=== PATIENT | male | born 1965 | race Caucasian/White ===

== ENCOUNTER 2019-10-29 00:03 | Inpatient (IN) ==
[2019-10-29] MEDS ORDERED: METOPROLOL TARTRATE 1 MG/ML VIAL IV STA (00:17)
[2019-10-29 00:35] LABS: Basophils # (auto) 0.03 K/uL (0-0.2); Basophils % (auto) 0.4 %; Eosinophils # (auto) 0.16 K/uL (0-0.5); Eosinophils % (auto) 2.2 %; Hematocrit (blood only) 44.1 % (42-52); Hemoglobin 15.8 g/dL (14.0-18.0); Immature Granulocytes # (auto) 0.02 K/uL (0.00-0.02); Immature Granulocytes % (auto) 0.3 %; Lymphocytes # (auto) 2.18 K/uL (1.2-3.4); Lymphocytes % (auto) 30.5 %; Mean Corpuscular Hemoglobin 32.7 pg (25-34); Mean Corpuscular Hgb Conc 35.8 g/dL (32-36); Mean Corpuscular Volume 91.3 fL (80-100); Monocytes # (auto) 0.49 K/uL (0.11-0.59); Monocytes % (auto) 6.9 %; Neutrophils # (auto) 4.27 K/uL (1.4-6.5); Neutrophils % (auto) 59.7 %; Platelet Count 247 K/uL (130-400); RDW Coefficient of Variation 12.3 % (11.5-14.5); RDW Standard Deviation 41.5 fL (36.4-46.3); Red Blood Count 4.83 M/uL (4.7-6.1); White Blood Count 7.15 K/uL (4.8-10.8)
[2019-10-29 00:44] LABS: D Dimer 340 ug/L FEU (0-500); INR 1.1 (0.9-1.1); Partial Thromboplastin Time 27.9 Seconds (21.0-31.0); Prothrombin Time 11.3 Seconds (9.0-12.0)
[2019-10-29] MEDS ORDERED: ASPIRIN 81 MG CHEW PO STA (00:47)
[2019-10-29] MEDS ORDERED: NITROGLYCERIN SL 0.4 MG/TAB TAB SL STA (00:47)
[2019-10-29 00:54] LABS: Alanine Aminotransferase 35 U/L (12-78); Albumin Level 3.2 gm/dl (3.4-5.0); Aspartate Aminotransferase 19 U/L (15-37); BUN Creatinine Ratio 15.9 (10-20); Blood Urea Nitrogen 18 mg/dl (7-18); Calcium 8.4 mg/dl (8.5-10.1); Carbon Dioxide 21 mmol/L (21-32); Chloride 105 mmol/L (98-107); Creatinine Clr Calc Pharmacy 91.7 ml/min; Est GFR (African American) 83.7; Est GFR (Non-African American) 72.3; Glucose 206 mg/dl (70-99); Magnesium 1.9 mg/dl (1.8-2.4); Potassium 3.7 mmol/L (3.5-5.1); Sodium 137 mmol/L (136-145)
[2019-10-29 00:55] LABS: Bilirubin Direct < 0.1 mg/dl (0-0.2)
[2019-10-29 01:04] LABS: Alkaline Phosphatase 83 U/L (45-117); Bilirubin,Total 0.4 mg/dl (0.2-1); Total Protein 6.8 gm/dl (6.4-8.2); Troponin I < 0.015 ng/ml (0-0.045)
[2019-10-29] MEDS ORDERED: ONDANSETRON INJ 2 MG/ML 2 ML VIAL IV PRN (03:43)
[2019-10-29] MEDS ORDERED: METOPROLOL TARTRATE 1 MG/ML VIAL IV PRN (03:43)
[2019-10-29] MEDS ORDERED: POLYETHYLENE (MIRALAX) 17 GM PACK PO PRN (03:43)
[2019-10-29] MEDS ORDERED: NITROGLYCERIN SL 0.4 MG/TAB TAB SL PRN (03:43)
[2019-10-29] MEDS: ACETAMINOPHEN 325 MG TAB PO PRN ×3 (04:02→15:49)
--- NOTE | 2019-10-29 04:27 | Emergency Department Note ---
Entered by Derrick Esqueda acting as a scribe for ED Provider Note Name: Andrew Ramirez Age: 54 Arrives Via: Walk in Informant: Patient CC: Palpitations HPI: The patient is a 54 year old male who presents to the emergency department with complaints of intermittent episodes of palpitations beginning a week ago. The patient states that he has had intermittent episodes of heart fluttering and palpitations for a week. He notes that these episodes of palpitations have been becoming more frequent. He reports that he became nauseous today, and he states that he has pressure in his left chest and down his left arm. He notes that it feels like someone is sticking him with a knife. He reports that he has been dyspneic with exertion for the last few months, but he states that his dyspnea has worsened over the last week. He denies any leg swelling, headaches, and leg pain. He also denies any recent trauma or recent travel. He notes that he has a family history of MIs. He reports that he does not smoke cigarettes, drink alcohol, and use drugs. The patient states that he has been seen by Dr. Reyes in the past due to a fast heart rate. It was believed that he had an irregular heart beat at that time, but he did not receive any treatment. He notes that he had two ice cream sandwiches and a cheesecake prior to arrival. ROS: See above HPI for pertinent positives & negatives. A total of 10 systems reviewed and were otherwise negative. Past Medical History: None Past Surgical History: None Family History: MIs Social History: Employed, does not use alcohol, drugs, or cigarettes Home Medications: None Allergies: None Physical: Vitals: BP 158/102, Pulse 110, Resp 22, Temp 97.7 F, O2 Sat 96 Exam: GENERAL: Patient is mildly anxious appearing and in no acute distress. EYES: No scleral icterus, unremarkable pupils. ENT: Mucous membranes moist, no nasal congestion. NECK: No masses appreciated, no meningismus, trachea is midline. RESPIRATORY: Equal bilaterally. No wheeze, no rhonchi. Mildly dyspneic. Crackles in the bilateral bases. CARDIOVASCULAR: Irregular rhythm and tachycardic. No murmurs, rubs, gallops appreciated. GASTROINTESTINAL: Abdomen soft, non-tender, no peritonitis. Bowel sounds positive. No masses appreciated. BACK: No midline tenderness, no CVA tenderness EXTREMITIES: Normal motion all extremities, no cyanosis. Mild edema to the bilateral lower legs. NEUROLOGIC: Alert and oriented, no acute motor or sensory deficits, no focal weakness, cranial nerves grossly intact. SKIN: No rash, no jaundice, no diaphoresis. ED Course: Prior Medical Record, Triage/Nursing Notes, Medications, Allergies reviewed by Me 0012: The patient was evaluated in room C4. A complete history and physical exam was performed. 0048: I reevaluated and updated the patient. He continues to have chest discomfort. 0120: Upon reevaluation, the patient is stable. His blood pressure is much improved and he has no further chest pain. I discussed the findings and the treatment plan with the patient. He expresses agreement and understanding. I spoke with Dr. Gale of the [facility]. The patient will be evaluated for further management. Vital Signs: reviewed and remarkable for tachy, htn Labs: Reviewed and remarkable for hyperglycemia Interventions: saline lock, lopressor 5mg IV, slntg tab, asa 324mg PO Imaging: CHEST X-RAY: X ray results are stated below per my interpretation: Chest: 1 view: No infiltrate, no effusion, normal cardiac border. EKG: Per My Interpretation: Indication CP: Afib RVR 116 bpm, qtc 453. Afib with RVR. No Ischemia. No previous for comparison Consults: 0120: I reviewed the patient's case with Dr. Gale - Hospitalist, [facility]. He will evaluate the patient for further management. Blood pressure: Elevated - Will be monitored by hospitalist. Disposition: Hospitalization Continuous Cardiac Monitoring: An order was placed for continuous cardiac mon itoring. The monitor shows a rate of 90 with an irregular rhythm. Differential: Cardiac Ischemia (STEMI, NSTEMI, Unstable Angina, etc), Aortic Dissection, Arrhythmia, Pulmonary Embolism, Pneumonia, Pneumothorax, MSK, Infectious, Pericarditis/Myocarditis, Esophageal Rupture, Gastrointestinal, amongst other pathologies entertained. Medical Decision Makin yr old male who reports no PMH arrives for evaluation of left chest discomfort associated with CAMPBE[place]. He does not have STEMI but does have Afib RVR from 110s-130s initially. IV established and given 1 dose lopressor with good result. Still some chest discomfort thus given SLNTG with resolution of pain. Also given ASA 324mg PO. After discussion with him it appears he may have been told Afib by steam table attendant in past but no interventions at that time. Given todays chest pain with symptoms I do think it reasonable to bring in for further management and evaluation. There is no evidence dissection/pnemonia by exam/cxr, and no evidence PE at this time. Hyperglycemia may be due to large sugar dessert he had this evening in attempt to make chest discomfort feel better. Impression: Afib with RVR Left-sided chest pain Hypertension Rinku Bhakta MD The scribe's documentation has been prepared under my direction and personally reviewed by me in its entirety. I confirm that the note above accurately reflects all work, treatment, procedures, and medical decision making performed by me. Impression & Plan Atrial fibrillation with RVR, Left-sided chest pain, Hypertension Past Med/Surg History Medical History (Updated 10/29/19 @ 01:37 by Derrick Esqueda) No chronic problems Family History (Updated 10/29/19 @ 00:21 by Derrick Esqueda) Other Myocardial infarction Social History (Updated 10/29/19 @ 00:21 by Derrick Esqueda) Preferred Language: Bahraini Communication Ability: Effective Manager Financial Required: No Beliefs That Will Affect Care: None Current Living Situation: Alone current occupational status: employed Other Information That Helps Us Care for You: No Feels Safe at Home: Yes Safety Concerns: Feels Safe At This Time Smoking Status: Never smoker Hx Alcohol Use: No Hx Substance Use: No Results & Data Vital Signs Vital Signs - 24 hr 10/29/19 00:04 10/29/19 00:32 10/29/19 01:00 Temperature 36.6 C Temperature Source Oral Pulse Rate 110 H 133 H 94 H Pulse Rhythm Regular Pulse Strength Normal Respiratory Rate 22 18 Respiratory Effort / Characteristics Non-Labored Spontaneous Respiratory Depth Normal Respiratory Pattern Regular Blood Pressure 158/102 H 134/101 H 118/78 Blood Pressure Mean 120 87 Blood Pressure Position Sitting Pulse Oximetry 96 Oxygen Delivery Method Room Air Sepsis Recent Fever Within 48 Hours No Sepsis Action Taken by Nursing No Action Required 10/29/19 01:30 10/29/19 02:00 Temperature Temperature Source Pulse Rate 84 80 Pulse Rhythm Pulse Strength Respiratory Rate 17 18 Respiratory Effort / Characteristics Respiratory Depth Respiratory Pattern Blood Pressure 114/79 138/71 Blood Pressure Mean 96 95 Blood Pressure Position Pulse Oximetry 98 Oxygen Delivery Method Sepsis Recent Fever Within 48 Hours Sepsis Action Taken by Nursing Laboratory Data Result diagrams: 10/29/19 00:24 10/29/19 00:24 Lab Results 10/29/19 10/29/19 10/29/19 Range/Units 00:24 00:24 00:24 WBC 7.15 (4.8-10.8) K/uL RBC 4.83 (4.7-6.1) M/uL Hgb 15.8 (14.0-18.0) g/dL Hct 44.1 (42-52) % MCV 91.3 (80-100) fL MCH 32.7 (25-34) pg MCHC 35.8 (32-36) g/dL RDW Std Deviation 41.5 (36.4-46.3) fL RDW Coeff of Juan Jose 12.3 (11.5-14.5) % Plt Count 247 (130-400) K/uL MPV 9.0 (7.4-10.4) fL Immature Gran % (Auto) 0.3 % Neut % (Auto) 59.7 % Lymph % (Auto) 30.5 % Terry % (Auto) 6.9 % Eos % (Auto) 2.2 % Baso % (Auto) 0.4 % Immature Gran # (Auto) 0.02 (0.00-0.02) K/uL Neut # (Auto) 4.27 (1.4-6.5) K/uL Lymph # (Auto) 2.18 (1.2-3.4) K/uL Terry # (Auto) 0.49 (0.11-0.59) K/uL Eos # (Auto) 0.16 (0-0.5) K/uL Baso # (Auto) 0.03 (0-0.2) K/uL PT 11.3 (9.0-12.0) Seconds INR 1.1 (0.9-1.1) APTT 27.9 (21.0-31.0) Seconds PTT Ratio 1.0 D-Dimer 340 (0-500) ug/L FEU Sodium 137 (136-145) mmol/L Potassium 3.7 (3.5-5.1) mmol/L Chloride 105 (98-107) mmol/L Carbon Dioxide 21 (21-32) mmol/L Anion Gap 11.0 (3-11) BUN 18 (7-18) mg/dl Creatinine 1.15 (0.6-1.4) mg/dl Est Cr Clr Drug Dosing 91.7 ml/min Est GFR ( Amer) 83.7 Est GFR (Non-Af Amer) 72.3 BUN/Creatinine Ratio 15.9 (10-20) Glucose 206 H (70-99) mg/dl Calcium 8.4 L (8.5-10.1) mg/dl Magnesium 1.9 (1.8-2.4) mg/dl Total Bilirubin 0.4 (0.2-1) mg/dl Direct Bilirubin < 0.1 (0-0.2) mg/dl AST 19 (15-37) U/L ALT 35 (12-78) U/L Alkaline Phosphatase 83 (45-117) U/L Troponin I < 0.015 (0-0.045) ng/ml Total Protein 6.8 (6.4-8.2) gm/dl Albumin 3.2 L (3.4-5.0) gm/dl TSH 4.610 H (0.300-4.500) uIu/ml Specimen Hemolysis Administered Medications Acetaminophen (Tylenol) 650 mg PO Q4H PRN PRN Reason: Pain or Fever Stop: 11/28/19 03:42 Last Admin: 10/29/19 04:02 Dose: 650 mg Documented by: [id number] Discontinued Medications Aspirin (Aspirin Chew) 324 mg PO NOW STA Stop: 10/29/19 00:48 Last Admin: 10/29/19 00:51 Dose: 324 mg Documented by: [id number] Metoprolol Tartrate (Lopressor) 5 mg IV NOW STA Stop: 10/29/19 00:18 Last Admin: 10/29/19 00:32 Dose: 5 mg Documented by: [id number] Nitroglycerin (Nitrostat) 0.4 mg SL NOW STA Stop: 10/29/19 00:48 Last Admin: 10/29/19 00:52 Dose: 0.4 mg Documented by: [id number] Discharge Plan Visit Data *Final* Discharge Date/Time: 10/29/19 03:31 Chief Complaint: Chest Pain Stated Complaint: CHEST PAIN ED Provider: Rinku Bhakta Discharge Problem: Atrial fibrillation with RVR, Left-sided chest pain, Hypertension Patient Disposition: Admitted As Inpatient Discharge Instructions Interventions: ED Discharge Assessment Last Done: 10/29/19 03:31 Discharge Problem: Hypertension Qualifiers: Hypertension type: unspecified Qualified Code(s): I10 - Essential (primary) hypertension The scribe's documentation has been prepared under my direction and personally reviewed by me in its entirety. I confirm that the note above accurately reflects all work, treatment, procedures, and medical decision making performed by me.
--- NOTE | 2019-10-29 04:38 | History and Physical Report ---
DATE OF ADMISSION: 10/29/2019 CHIEF COMPLAINT: Chest pain. HISTORY OF PRESENT ILLNESS: This is a 54-year-old male with no significant past medical history, not on any medications, presents with 1 week of left-sided chest pain, sharp stabbing like pain. It comes and goes on its own. No associating factors, but today it stayed all day long, that is the reason he came to the ER. Last couple of days he woke up with palpitations and some nausea, but no vomiting. Denies any headache, no dizziness, no earache, no runny nose, no blurred vision, no sore throat, no cough and patient at one time also had pressure-like feeling on his left arm. Currently, resting comfortably and hemodynamically stable. Denies any abdominal pain, no diarrhea, no constipation, no blood in stool or black stools, no hematuria. Denies any swelling in the legs. Denies any orthopnea,. But since several months he is having some shortness of breath on exertion and feeling weak and tired with exertion. ALLERGIES: No known drug allergies. PAST MEDICAL HISTORY: None. PAST SURGICAL HISTORY: He had left shoulder surgery, right knee replacement, tendon cyst removal on the right upper extremity. MEDICATIONS: None. FAMILY HISTORY: Heart disease in the family. SOCIAL HISTORY: Denies any smoking, no alcohol. No drug use. Lives alone. REVIEW OF SYMPTOMS: As per HPI. Rest of review of systems negative. PHYSICAL EXAMINATION: GENERAL: The patient is morbidly obese, not in acute distress. VITAL SIGNS: Temperature 36.6, pulse when he came in was 130s, currently in the 80s, respiratory rate 18, blood pressure 138/71, oxygen 98% on room air. HEENT: No pallor, no icterus. Pupils equal, round, reactive to light. NECK: No JVD, no neck masses, no carotid bruits. CARDIOVASCULAR: S1, S2 heard, irregular rhythm, no murmur, no gallop. RESPIRATORY SYSTEM: Normal AP diameter. No accessory muscle use. No wheezing, no crackles. ABDOMEN: Soft, bowel sounds present, nontender. No distention. CENTRAL NERVOUS SYSTEM: Cranial nerves II-XII grossly nonfocal. EXTREMITIES: Mild pedal edema present, no erythema seen. LABORATORY DATA: WBC 7.1, hemoglobin 15.8, hematocrit 44.1, platelets 247. PT 11.3, INR 1.1, APTT 27.9. D-dimer 340. PTT 1. Sodium 137, potassium 3.7, chloride 105, bicarbonate 21, BUN 18, creatinine 1.15. Serum glucose 206, calcium 8.4, magnesium 1.9, total bilirubin 0.4, direct bilirubin less than 0.1, AST 19, ALT 35, alkaline phosphatase 83, troponin I less than 0.015. TSH 4.6. IMAGING: Chest x-ray, no acute findings. EKG: Atrial fibrillation with rapid ventricular response at rate of 116. ASSESSMENT AND PLAN: This is a 54-year-old male who presents with chest pain and found to be in rapid atrial fibrillation. 1. Rapid atrial fibrillation, new onset, etiology unclear. CHADS2-VASc score was 1. The patient given IV Lopressor in the ER and it is under control. We will continue with IV Lopressor 2.5 q.4 hours p.r.n. and full - dose aspirin. Echocardiogram, serial cardiac enzymes, n.p.o. Consult cardiology in a.m. for further recommendations. Further anticoagulation as per cardiology. 2. Obesity, may need a sleep study as outpatient. 3. Chest pain, left side, most likely secondary to rapid atrial fibrillation. Initial Troponin is negative . Will follow serial enzymes, echocardiogram. Follow repeat EKG. 4. Hyperglycemia. The patient states he has no history of diabetes,.Patient says he ate lot of junk food before coming to the hospital. We will check his HbA1c level in a.m. and follow his blood sugars. 5. Mild lower extremity edema. Follow the echocardiogram. 6. Deep venous thrombosis prophylaxis, sequential compression devices. DISPOSITION: Closely monitor in the tele floor. Level 1 full code. MTDD
--- NOTE | 2019-10-29 06:29 | XRay Report ---
XR chest 1V portable CLINICAL HISTORY: Atypical chest pain COMPARISON STUDY: No previous studies for comparison. FINDINGS: The heart is enlarged. There is mild central vascular prominence which may be accentuated d ue to the patient's large body habitus. There is no focal pulmonary consolidation. There are no pleur al effusions.[ IMPRESSION: Cardiomegaly. No evidence of focal pulmonary consolidation. Mild vascular prominence, a f inding which may be accentuated due to the patient's body habitus ACT 112: Negative or not required by law. Electronically signed by: Bo Horvath M.D. 10/29/2019 6:28 AM
[2019-10-29 07:49] LABS: Estimated Average Glucose 126 mg/dl
[2019-10-29 08:07] LABS: Troponin I < 0.015 ng/ml (0-0.045)
[2019-10-29 08:20] LABS: T4 Free Thyroxine 0.94 ng/dl (0.8-1.6)
--- NOTE | 2019-10-29 08:52 | Cardiology Consultation ---
Date of Consultation October 29, 2019 Assessment & Plan (1) Atrial fibrillation with RVR: Newly diagnosed. Duration unknown. Potentially 1-6 months based on his symptoms of dyspnea, decline in functional capacity and palpitations. [id number] score of 2 (Hypertension and now likely DM given elevated A1C) His BMI and weight are over the recommended limit for DOAC. Recommend initiation of Coumadin. After 4 weeks of appropriate anticoagulation, consider cardioversion. Start metoprolol tartrate 25 mg BID for rate control. Echo with normal LV systolic function. will request records from Dr. Reyes Consider outpatient stress test as well given risk factors PT/INR ordered for AM. will need close f/u with anticoagulation clinic in [place]. (2) Hypertension: Elevated BP on arrival. Improved with intiation of beta gunnar. Monitor on metoprolol 25 mg BID Consider NARENDRA/ARB given borderline diabetic (3) Dyslipidemia: History of dyslipidemia. previously on Tricor but stopped. Will recheck fasting lipid panel in AM and consider statin Case discussed with Dr. Victor. Will follow. Supervising Physician Co-Signing Physician Notes General: no acute distress and stated age Head: normocephalic, no masses, lesions, tenderness or abnormalities Eyes: conjunctiva are pink and non-injected, sclera clear Neck: supple, no adenopathy, no bruits, normal jugular venous pulse, no hepatojugular reflux Chest: normal shape and normal respiratory effort Lungs: clear to auscultation and percussion Cardiac Exam: - irregular rate & rhythm, no murmurs gallops or rubs - normal S1, normal S2 Pulses: 2(+) throughout Abdomen: abdomen soft, non-tender, no abnormal masses and no hepatosplenomegaly Musculoskeletal: no gait disturbance, no joint inflammation, no deforming arthritis Extremities: no edema and no cyanosis Neuro: grossly normal exam I have discussed the case with Alicia Moise, reviewed the chart and examined the patient. I agree with her assessment and plan as outlined. History of Present Illness Reason for Consultation: Chest pain; Atrial fibrillation Requesting Physician: Dr. Gale Attending Physician: Dr. Victor History of Present Illness Patient is a 54 year old male with history of obesity, dyslipidemia who does not follow routinely with a PCP, and is currently not taking any prescription medications. He reports that he was evaluated several years ago by Dr. Reyes, [facility] in [place] for possible an irregular heart beat at time of a colonoscopy. He does not believe this was "atrial fibrillation". Records not available to review at this time. He reports he took a medication for several months but stopped it and never returned to clinic. He is unsure the name of this medication. He reportedly also had a stress test about 2 years ago which he was told was normal. No history of NE, CHF, valvular heart disease. He reports over the last week he developed intermittent sharp stabbing chest pain, occurring intermittently. Not related to exertion. Lasts several seconds and resolves spontaneously. He also reports palpitations in the morning hours that resolve. He notes increased fatigue and decline in functional capacity possibly dating back 6 months. No exertional chest pain. Increased dyspnea with exertion reported x 6 months. Intermittent palpitations also noted during this time. He has not seen a medical provider during this time for these symptoms. He does not check HR or BP at home. Upon arrival to ER he was found to be in afib with mildly elevated ventricular rates. He was started on low dose metoprolol IV. He was not anticoagulated due to low CHADSSVASC score. BP was elevated on arrival without history of documented hypertension. Glucose was also elevated on arrival without history of documented DM type II. Rates improved overnight. At time of consult, patient reports feeling well. No recurrent chest pain. HR's trending down. No recurrent palpitations or tachypalpitations. No orthopnea, PND or edema. No recent chest pain with activity. No dizziness, syncope or near syncope. He reports no history of acute GI bleeding. he had a colonoscopy and EGD 2 years ago and was told he had diverticulitis but no bleed. 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 Beliefs That Will Affect Care: None Current Living Situation: Alone current occupational status: employed Other Information That Helps Us Care for You: No Feels Safe at Home: Yes Safety Concerns: Feels Safe At This Time Smoking Status: Never smoker Hx Alcohol Use: No Hx Substance Use: No Review of Systems Review of Systems: All systems reviewed & are unremarkable except as noted in HPI & below Physical Exam Constitutional: WD/WN, vitals as above + obese; no acute distress and not ill appearing ENMT: external ear and nose normal, oropharynx normal Neck: trachea midline, no thyromegaly Respiratory: normal respiratory effort, lungs clear to auscultation Cardiovascular: Rate/Rhythm: + irregularly irregular Heart Sounds: normal S1 and normal S2; no murmur Vessels: no JVD Extremities: no edema Gastrointestinal (Abdomen): normal bowel sounds, soft, nontender, no hepatosplenomegaly Musculoskeletal: no cyanosis or clubbing, extremities motor strength 5/5 Neurologic: PERRL, EOMI, accommodation nl, no face palsy, no dysarthria Psychiatric: A+Ox3, euthymic affect Results & Data ([facility]) Vital Signs (Past 12 Hours) Vital Signs Temp Pulse Pulse Resp BP BP Pulse Ox 10/29/19 07:22 100 H 10/29/19 06:30 36.9 C 95 H 21 119/76 96 10/29/19 03:38 36.9 C 84 20 132/89 96 10/29/19 03:00 100 H 22 132/101 H 10/29/19 02:30 90 16 141/77 H 10/29/19 02:00 80 18 138/71 98 10/29/19 01:30 84 17 114/79 10/29/19 01:00 94 H 18 118/78 10/29/19 00:32 133 H 134/101 H 10/29/19 00:04 36.6 C 110 H 22 158/102 H 96 Laboratory Results 10/29/19 10/29/19 10/29/19 Range/Units 06:56 06:56 00:24 WBC (4.8-10.8) K/uL RBC (4.7-6.1) M/uL Hgb (14.0-18.0) g/dL Hct (42-52) % MCV (80-100) fL MCH (25-34) pg MCHC (32-36) g/dL RDW Std Deviation (36.4-46.3) fL RDW Coeff of Juan Jose (11.5-14.5) % Plt Count (130-400) K/uL MPV (7.4-10.4) fL Immature Gran % (Auto) % Neut % (Auto) % Lymph % (Auto) % [place] % (Auto) % Eos % (Auto) % Baso % (Auto) % Immature Gran # (Auto) (0.00-0.02) K/uL Neut # (Auto) (1.4-6.5) K/uL Lymph # (Auto) (1.2-3.4) K/uL [place] # (Auto) (0.11-0.59) K/uL Eos # (Auto) (0-0.5) K/uL Baso # (Auto) (0-0.2) K/uL PT (9.0-12.0) Seconds INR (0.9-1.1) APTT (21.0-31.0) Seconds PTT Ratio D-Dimer (0-500) ug/L FEU Sodium 137 (136-145) mmol/L Potassium 3.7 (3.5-5.1) mmol/L Chloride 105 (98-107) mmol/L Carbon Dioxide 21 (21-32) mmol/L Anion Gap 11.0 (3-11) BUN 18 (7-18) mg/dl Creatinine 1.15 (0.6-1.4) mg/dl Est Cr Clr Drug Dosing 91.7 ml/min Est GFR ( Amer) 83.7 Est GFR (Non-Af Amer) 72.3 BUN/Creatinine Ratio 15.9 (10-20) Glucose 206 H (70-99) mg/dl Estimat Average Glucose 126 mg/dl Hemoglobin A1c 6.0 H (4.5-5.6) % Calcium 8.4 L (8.5-10.1) mg/dl Magnesium 1.9 (1.8-2.4) mg/dl Total Bilirubin 0.4 (0.2-1) mg/dl Direct Bilirubin < 0.1 (0-0.2) mg/dl AST 19 (15-37) U/L ALT 35 (12-78) U/L Alkaline Phosphatase 83 (45-117) U/L Troponin I < 0.015 < 0.015 (0-0.045) ng/ml Total Protein 6.8 (6.4-8.2) gm/dl Albumin 3.2 L (3.4-5.0) gm/dl TSH 4.870 H 4.610 H (0.300-4.500) uIu/ml Free T4 0.94 (0.8-1.6) ng/dl Specimen Hemolysis 10/29/19 10/29/19 Range/Units 00:24 00:24 WBC 7.15 (4.8-10.8) K/uL RBC 4.83 (4.7-6.1) M/uL Hgb 15.8 (14.0-18.0) g/dL Hct 44.1 (42-52) % MCV 91.3 (80-100) fL MCH 32.7 (25-34) pg MCHC 35.8 (32-36) g/dL RDW Std Deviation 41.5 (36.4-46.3) fL RDW Coeff of Juan Jose 12.3 (11.5-14.5) % Plt Count 247 (130-400) K/uL MPV 9.0 (7.4-10.4) fL Immature Gran % (Auto) 0.3 % Neut % (Auto) 59.7 % Lymph % (Auto) 30.5 % [place] % (Auto) 6.9 % Eos % (Auto) 2.2 % Baso % (Auto) 0.4 % Immature Gran # (Auto) 0.02 (0.00-0.02) K/uL Neut # (Auto) 4.27 (1.4-6.5) K/uL Lymph # (Auto) 2.18 (1.2-3.4) K/uL [place] # (Auto) 0.49 (0.11-0.59) K/uL Eos # (Auto) 0.16 (0-0.5) K/uL Baso # (Auto) 0.03 (0-0.2) K/uL PT 11.3 (9.0-12.0) Seconds INR 1.1 (0.9-1.1) APTT 27.9 (21.0-31.0) Seconds PTT Ratio 1.0 D-Dimer 340 (0-500) ug/L FEU Sodium (136-145) mmol/L Potassium (3.5-5.1) mmol/L Chloride (98-107) mmol/L Carbon Dioxide (21-32) mmol/L Anion Gap (3-11) BUN (7-18) mg/dl Creatinine (0.6-1.4) mg/dl Est Cr Clr Drug Dosing ml/min Est GFR ( Amer) Est GFR (Non-Af Amer) BUN/Creatinine Ratio (10-20) Glucose (70-99) mg/dl Estimat Average Glucose mg/dl Hemoglobin A1c (4.5-5.6) % Calcium (8.5-10.1) mg/dl Magnesium (1.8-2.4) mg/dl Total Bilirubin (0.2-1) mg/dl Direct Bilirubin (0-0.2) mg/dl AST (15-37) U/L ALT (12-78) U/L Alkaline Phosphatase (45-117) U/L Troponin I (0-0.045) ng/ml Total Protein (6.4-8.2) gm/dl Albumin (3.4-5.0) gm/dl TSH (0.300-4.500) uIu/ml Free T4 (0.8-1.6) ng/dl Specimen Hemolysis Diagnostic Findings Echo report reviewed: Normal LV systolic function. LVEF 50-55% RV systolic function is normal Left and right atrium is mildly dilated Mild MR and trace TR Chest xray on admission: No acute findings Telemetry reviewed: Afib with rates ranging 90-100's Medications Administered Current Inpatient Medications Acetaminophen (Tylenol) 650 mg PO Q4H PRN PRN Reason: Pain or Fever Stop: 11/28/19 03:42 Last Admin: 10/29/19 07:51 Dose: 650 mg Documented by: Metoprolol Tartrate (Lopressor) 2.5 mg IV Q4 PRN PRN Reason: Tachycardia Stop: 11/28/19 03:42 Metoprolol Tartrate (Lopressor) 25 mg PO BID DEMETRI Stop: 11/28/19 09:59 Last Admin: 10/29/19 11:35 Dose: 25 mg Documented by: Nitroglycerin (Nitrostat) 0.4 mg SL UD PRN PRN Reason: Chest Pain Stop: 04/09/20 03:42 Ondansetron HCl (Zofran) 4 mg IV Q6H PRN PRN Reason: Nausea Stop: 11/28/19 03:42 Polyethylene Glycol (Miralax Powder Packet) 17 gm PO DAILY PRN PRN Reason: Constipation Stop: 11/28/19 03:42 (1) Hypertension Hypertension type: unspecified Qualified Code(s): I10 - Essential (primary) hypertension
[2019-10-29] MEDS ORDERED: ASPIRIN 325 MG ECTAB PO SCH (09:00)
[2019-10-29] MEDS ORDERED: WARFARIN SOD 5 MG TAB PO ONE (10:30)
[2019-10-29] MEDS: METOPROLOL TARTRATE 25 MG TAB PO SCH ×2 (11:35→20:52)
--- NOTE | 2019-10-29 14:55 | Electrocardiogram Report ---
Test Reason : Blood Pressure : / mmHG Vent. Rate : 116 BPM Atrial Rate : 107 BPM P-R Int : 000 ms QRS Dur : 078 ms QT Int : 326 ms P-R-T Axes : 000 060 -09 degrees QTc Int : 453 ms Atrial fibrillation with rapid ventricular response Abnormal QRS-T angle, consider primary T wave abnormality Abnormal ECG No previous ECGs available Confirmed by Albino Wu ([id number]) on 10/29/2019 2:55:44 PM Referred By: REFERRED SELF Confirmed By:Albino Wu
--- NOTE | 2019-10-29 17:10 | Hospitalist Progress Note ---
Date of Service October 29, 2019 Assessment & Plan (1) Atrial fibrillation with RVR: Patient admitted with chest pain shortness of breath, dizzy spell and lightheadedness - report of increased fatigue dyspnea on exertion for last few months Found to be in rapid A. fib RVR Diagnosis, Given symptoms of CAMPBELL, palpitation for last few months, have been in atrial fibrillation more than 6 weeks Calculated [id number] 2 (hypertension/type 2 diabetes) Started on p.o. Coumadin for stroke prophylaxis, does not need a bridge therapy Patient started on beta-gunnar Lopressor 25 mg twice daily Remains in A. fib with rate controlled Appreciate input from cardiology Patient may need cardioversion after 4 weeks of anticoagulation Echo with normal LV systolic function. Wants to establish with cardiology with Avi Navarro Will need outpatient cardiac stress test for ischemic work-up Fasting lipid panel in a.m. (2) Hypertension: Pressure was elevated on admission Improved after beta-gunnar Low-dose NARENDRA inhibitor lisinopril 2.5 mg given diabetes Type 2 diabetes: Patient has very significant family history of type 2 diabetes with complication, coronary artery disease Hemoglobin A1c 6.5 Not on any antidiabetic meds clinical informatics educator consulted Insulin sliding scale while in hospital Patient may need to be on oral antidiabetic medication on discharge To follow-up with family physician for diabetic management Patient wants to establish care with Avi lucas at [facility]- for continuation of care Code status: Full code DVT prophylaxis: On Coumadin Disposition: Expected to be discharged home when medically stable Patient will need to establish care with family physician and cardiology prior to discharge Admission and Anticipated Discharge Date Admission Date: October 29, 2019 Subjective Patient reports of feeling better since admission Patient denies of any chest heaviness chest discomfort no shortness of breath at rest, Did experienced mild dyspnea on exertion while walking to the bathroom No dizzy spell lightheadedness Report of palpitation No cough, Review of Systems Review of Systems: All systems reviewed & are unremarkable except as noted in HPI & below Cardiovascular: + dyspnea on exertion; no chest pain, no dyspnea, no dyspnea at rest, no palpitations, no lightheadedness, no syncope and no edema Gastrointestinal: no abdominal pain, no nausea and no vomiting Neurologic: no dizziness and no syncope Physical Exam Constitutional: WD/WN, vitals as above no acute distress Eyes: PERRL, conjunctivae normal, anicteric sclerae ENMT: external ear and nose normal, oropharynx normal Neck: trachea midline, no thyromegaly Respiratory: normal respiratory effort, lungs clear to auscultation Auscultation: no crackles and no rales Cardiovascular: Rate/Rhythm: regular rate; + abnormal rhythm (Irregularly irregular/A. fib) Vessels: no JVD Extremities: normal capillary refill; no pedal edema and no edema Gastrointestinal (Abdomen): normal bowel sounds, soft, nontender, no hepato splenomegaly Musculoskeletal: no cyanosis or clubbing, extremities motor strength 5/5 Skin: no rashes, warm and dry Neurologic: PERRL, EOMI, accommodation nl, no face palsy, no dysarthria Psychiatric: A+Ox3, euthymic affect Results & Data ([facility]) Vital Signs (Past 12 Hours) Vital Signs Temp Pulse Pulse Pulse Resp BP Pulse Ox 10/29/19 15:16 36.9 C 75 18 125/78 95 10/29/19 11:09 37.1 C 91 H 18 130/75 95 10/29/19 07:22 100 H 10/29/19 06:30 36.9 C 95 H 21 119/76 96 Diagnostic Findings Echo 10/29/2019 Normal LV systolic function. LVEF 50-55% RV systolic function is normal Left and right atrium is mildly dilated Mild MR and trace TR Chest xray on admission: No acute findings Telemetry reviewed: Afib with rates ranging 90-100's Medications Administered Current Inpatient Medications Acetaminophen (Tylenol) 650 mg PO Q4H PRN PRN Reason: Pain or Fever Stop: 11/28/19 03:42 Last Admin: 10/29/19 15:49 Dose: 650 mg Documented by: Metoprolol Tartrate (Lopressor) 2.5 mg IV Q4 PRN PRN Reason: Tachycardia Stop: 11/28/19 03:42 Metoprolol Tartrate (Lopressor) 25 mg PO BID DEMETRI Stop: 11/28/19 09:59 Last Admin: 10/29/19 11:35 Dose: 25 mg Documented by: Nitroglycerin (Nitrostat) 0.4 mg SL UD PRN PRN Reason: Chest Pain Stop: 11/28/19 03:42 Ondansetron HCl (Zofran) 4 mg IV Q6H PRN PRN Reason: Nausea Stop: 11/28/19 03:42 Polyethylene Glycol (Miralax Powder Packet) 17 gm PO DAILY PRN PRN Reason: Constipation Stop: 11/28/19 03:42 Warfarin Sodium (Coumadin) 5 mg PO DAILY@1600 DEMETRI Stop: 11/29/19 15:59 (1) Hypertension Hypertension type: unspecified Qualified Code(s): I10 - Essential (primary) hypertension
[2019-10-29] MEDS ORDERED: GLUCOSE 40% GEL 15 GM TUBE PO PRN (18:58)
[2019-10-29] MEDS ORDERED: DEXTROSE 50% 50 ML SYRINGE IV PRN (18:58)
[2019-10-29] MEDS ORDERED: GLUCAGON FOR INJ 1 MG VIAL SQ PRN (18:58)
[2019-10-29] MEDS ORDERED: GLUCOSE 10 TABS/TUBE PO PRN (18:58)
[2019-10-29] MEDS ORDERED: CARBOHYDRATES FOR HYPOGLYCEMIA PO PRN (18:58)
[2019-10-29] MEDS: INSULIN ASPART 100 UNITS/ML 3 ML PEN SC SCH (22:04)
[2019-10-30 06:03] LABS: Basophils # (auto) 0.05 K/uL (0-0.2); Basophils % (auto) 0.8 %; Eosinophils # (auto) 0.22 K/uL (0-0.5); Eosinophils % (auto) 3.5 %; Hematocrit (blood only) 45.9 % (42-52); Hemoglobin 16.2 g/dL (14.0-18.0); Immature Granulocytes # (auto) 0.03 K/uL (0.00-0.02); Immature Granulocytes % (auto) 0.5 %; Lymphocytes # (auto) 1.96 K/uL (1.2-3.4); Lymphocytes % (auto) 30.9 %; Mean Corpuscular Hemoglobin 32.3 pg (25-34); Mean Corpuscular Hgb Conc 35.3 g/dL (32-36); Mean Corpuscular Volume 91.6 fL (80-100); Mean Platelet Volume 9.1 fL (7.4-10.4); Monocytes # (auto) 0.57 K/uL (0.11-0.59); Neutrophils # (auto) 3.52 K/uL (1.4-6.5); Neutrophils % (auto) 55.3 %; Platelet Count 231 K/uL (130-400); RDW Coefficient of Variation 12.5 % (11.5-14.5); RDW Standard Deviation 41.9 fL (36.4-46.3); Red Blood Count 5.01 M/uL (4.7-6.1); White Blood Count 6.35 K/uL (4.8-10.8)
[2019-10-30 06:12] LABS: INR 1.1 (0.9-1.1); Prothrombin Time 11.9 Seconds (9.0-12.0)
[2019-10-30 06:35] LABS: BUN Creatinine Ratio 15.9 (10-20); Calcium 8.9 mg/dl (8.5-10.1); Est GFR (African American) 101.6; Est GFR (Non-African American) 87.7; Magnesium 2.1 mg/dl (1.8-2.4)
[2019-10-30] MEDS: INSULIN ASPART 100 UNITS/ML 3 ML PEN SC SCH ×3 (08:34→17:05)
[2019-10-30] MEDS: METOPROLOL TARTRATE 25 MG TAB PO SCH (08:34)
--- NOTE | 2019-10-30 09:23 | Cardiology Progress Note ---
Date of Service October 30, 2019 Assessment & Plan (1) Atrial fibrillation with RVR: Newly diagnosed. Duration unknown. Potentially 1-6 months based on his symptoms of dyspnea, decline in functional capacity and palpitations. [id number] score of 2 (Hypertension and now likely DM given elevated A1C) After discussion with Dr. Victor, will initate Eliquis and discharge on 5 mg BID. Stop coumadin After 4 weeks of appropriate anticoagulation, will arrange cardioversion. Ventricular rates controlled on metoprolol 25 mg BID. Consider outpatient stress test in the future as well given risk factors (2) Hypertension: Elevated BP on arrival. Improved with intiation of beta gunnar. Monitor on metoprolol 25 mg BID Consider future NARENDRA/ARB given borderline diabetic (3) Dyslipidemia: History of dyslipidemia with elevated triglycerides. previously on Tricor but stopped. Recommend resuming therapy Case discussed with Dr. Victor. Stable for discharge on Eliquis 5 mg BID and metoprolol tartrate 25 mg BID. Will arrange cardiology follow up in 2-[address] Victor or Jose Maria. Office will call with appointment. Supervising Physician Co-Signing Physician Notes I have discussed the case with Alicia Moise. I reviewed the chart, telemetry and examined the patient. I agree that he can be discharged home with follow-up as an outpatient and eventual elective cardioversion as an outpatient. Subjective Patient feeling well this morning. No recurrent chest pain or SOB. No dizziness. No palpitations. No orthopnea, PND or edema. Review of Systems Review of Systems: All systems reviewed & are unremarkable except as noted in HPI & below Physical Exam Constitutional: WD/WN, vitals as above + obese; no acute distress and not ill appearing ENMT: external ear and nose normal, oropharynx normal Neck: trachea midline, no thyromegaly Respiratory: normal respiratory effort, lungs clear to auscultation Cardiovascular: Rate/Rhythm: + irregularly irregular Heart Sounds: normal S1 and normal S2; no murmur Vessels: no JVD Extremities: no edema Gastrointestinal (Abdomen): normal bowel sounds, soft, nontender, no hepatosplenomegaly Musculoskeletal: no cyanosis or clubbing, extremities motor strength 5/5 Neurologic: PERRL, EOMI, accommodation nl, no face palsy, no dysarthria Psychiatric: A+Ox3, euthymic affect Results & Data Vital Signs (Past 12 Hours) Vital Signs Temp Pulse Pulse Resp BP Pulse Ox 10/30/19 08:00 82 10/30/19 07:30 36.5 C 75 18 105/73 95 10/30/19 04:33 36.5 C 92 H 18 146/102 H 95 10/29/19 23:14 36.8 C 83 16 144/98 H 96 Laboratory Results 10/30/19 10/30/19 10/30/19 Range/Units 07:29 05:42 05:42 WBC 6.35 (4.8-10.8) K/uL RBC 5.01 (4.7-6.1) M/uL Hgb 16.2 (14.0-18.0) g/dL Hct 45.9 (42-52) % MCV 91.6 (80-100) fL MCH 32.3 (25-34) pg MCHC 35.3 (32-36) g/dL RDW Std Deviation 41.9 (36.4-46.3) fL RDW Coeff of Juan Jose 12.5 (11.5-14.5) % Plt Count 231 (130-400) K/uL MPV 9.1 (7.4-10.4) fL Immature Gran % (Auto) 0.5 % Neut % (Auto) 55.3 % Lymph % (Auto) 30.9 % [place] % (Auto) 9.0 % Eos % (Auto) 3.5 % Baso % (Auto) 0.8 % Immature Gran # (Auto) 0.03 H (0.00-0.02) K/uL Neut # (Auto) 3.52 (1.4-6.5) K/uL Lymph # (Auto) 1.96 (1.2-3.4) K/uL [place] # (Auto) 0.57 (0.11-0.59) K/uL Eos # (Auto) 0.22 (0-0.5) K/uL Baso # (Auto) 0.05 (0-0.2) K/uL PT 11.9 (9.0-12.0) Seconds INR 1.1 (0.9-1.1) Sodium (136-145) mmol/L Potassium (3.5-5.1) mmol/L Chloride (98-107) mmol/L Carbon Dioxide (21-32) mmol/L Anion Gap (3-11) BUN (7-18) mg/dl Creatinine (0.6-1.4) mg/dl Est Cr Clr Drug Dosing ml/min Est GFR ( Amer) Est GFR (Non-Af Amer) BUN/Creatinine Ratio (10-20) Glucose (70-99) mg/dl POC Glucose 116 H (70-99) mg/dl Calcium (8.5-10.1) mg/dl Magnesium (1.8-2.4) mg/dl Troponin I (0-0.045) ng/ml Triglycerides (0-150) mg/dl Cholesterol (0-200) mg/dl LDL Cholesterol Direct mg/dl LDL Cholesterol, Calc mg/dl VLDL Cholesterol, Calc mg/dl HDL Cholesterol mg/dl Cholesterol/HDL Ratio 10/30/19 10/29/19 10/29/19 Range/Units 05:42 20:50 12:54 WBC (4.8-10.8) K/uL RBC (4.7-6.1) M/uL Hgb (14.0-18.0) g/dL Hct (42-52) % MCV (80-100) fL MCH (25-34) pg MCHC (32-36) g/dL RDW Std Deviation (36.4-46.3) fL RDW Coeff of Juan Jose (11.5-14.5) % Plt Count (130-400) K/uL MPV (7.4-10.4) fL Immature Gran % (Auto) % Neut % (Auto) % Lymph % (Auto) % [place] % (Auto) % Eos % (Auto) % Baso % (Auto) % Immature Gran # (Auto) (0.00-0.02) K/uL Neut # (Auto) (1.4-6.5) K/uL Lymph # (Auto) (1.2-3.4) K/uL [place] # (Auto) (0.11-0.59) K/uL Eos # (Auto) (0-0.5) K/uL Baso # (Auto) (0-0.2) K/uL PT (9.0-12.0) Seconds INR (0.9-1.1) Sodium 137 (136-145) mmol/L Potassium 4.0 (3.5-5.1) mmol/L Chloride 107 (98-107) mmol/L Carbon Dioxide 22 (21-32) mmol/L Anion Gap 8.0 (3-11) BUN 16 (7-18) mg/dl Creatinine 0.98 (0.6-1.4) mg/dl Est Cr Clr Drug Dosing 111.0 ml/min Est GFR ( Amer) 101.6 Est GFR (Non-Af Amer) 87.7 BUN/Creatinine Ratio 15.9 (10-20) Glucose 123 H (70-99) mg/dl POC Glucose 98 (70-99) mg/dl Calcium 8.9 (8.5-10.1) mg/dl Magnesium 2.1 (1.8-2.4) mg/dl Troponin I < 0.015 (0-0.045) ng/ml Triglycerides 561 H (0-150) mg/dl Cholesterol 218 H (0-200) mg/dl LDL Cholesterol Direct 108 mg/dl LDL Cholesterol, Calc mg/dl VLDL Cholesterol, Calc mg/dl HDL Cholesterol 33 mg/dl Cholesterol/HDL Ratio 7 Diagnostic Findings Echo reviewed: Normal LV systolic function LVEF 50-55% Mildly dilated left and right atria mild MR and trace TR EKG from this morning: Afib with controlled rates. no acute changes Telemetry reviewed: Afib with controlled rates ranging 70-90 bpm Medications Administered Current Inpatient Medications Acetaminophen (Tylenol) 650 mg PO Q4H PRN PRN Reason: Pain or Fever Stop: 11/28/19 03:42 Last Admin: 10/29/19 15:49 Dose: 650 mg Documented by: Apixaban (Eliquis) 5 mg PO BID [facility] Stop: 11/29/19 09:29 Dextrose (Dextrose 50%) 25 - 50 ml IV UD PRN; Protocol PRN Reason: Hypoglycemia Protocol Stop: 11/28/19 18:57 Glucagon (Glucagen) 1 mg SQ UD PRN; Protocol PRN Reason: Hypoglycemia Protocol Stop: 11/28/19 18:57 Glucose (Dex4 Glucose) 4 - 8 tabs PO UD PRN; Protocol PRN Reason: Hypoglycemia Protocol Stop: 11/28/19 18:57 Glucose (Glucose 40%) 15 - 30 gm PO UD PRN; Protocol PRN Reason: Hypoglycemia Protocol Stop: 11/28/19 18:57 Insulin Aspart (Novolog Flexpen) 0 units SC ACHS [facility] Stop: 11/28/19 20:59 Last Admin: 10/30/19 08:34 Dose: 5 units Documented by: Metoprolol Tartrate (Lopressor) 2.5 mg IV Q4 PRN PRN Reason: Tachycardia Stop: 11/28/19 03:42 Metoprolol Tartrate (Lopressor) 25 mg PO BID [facility] Stop: 11/28/19 09:59 Last Admin: 10/30/19 08:34 Dose: 25 mg Documented by: Miscellaneous (Carbohydrates For Hypoglycemia) 15 - 30 gm PO UD PRN PRN Reason: Hypoglycemia Protocol Stop: 11/28/19 18:57 Nitroglycerin (Nitrostat) 0.4 mg SL UD PRN PRN Reason: Chest Pain Stop: 11/28/19 03:42 Ondansetron HCl (Zofran) 4 mg IV Q6H PRN PRN Reason: Nausea Stop: 11/28/19 03:42 Polyethylene Glycol (Miralax Powder Packet) 17 gm PO DAILY PRN PRN Reason: Constipation Stop: 11/28/19 03:42 (1) Hypertension Hypertension type: unspecified Qualified Code(s): I10 - Essential (primary) hypertension
[2019-10-30] MEDS ORDERED: APIXABAN 5 MG TABLET PO SCH (09:30)
--- NOTE | 2019-10-30 15:45 | Hospitalist Progress Note ---
Date of Service October 30, 2019 Assessment & Plan (1) Atrial fibrillation with RVR: Patient admitted with chest pain shortness of breath, dizzy spell and lightheadedness Found to be in rapid A. fib RVR on admission Received IV lopressor in the ER Starting on Lopressor 25 mg BID, Rate control Calculated [id number] (hypertension/type 2 diabetes) cardiology on board Coumadin was changed to Eliquis Remains in A. fib with rate controlled Plan for Cardioversion after 4 weeks of appropriate anticoagulation Consider outpatient stress test in the future as well given risk factors Echo with normal LV systolic function. 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 Insulin sliding scale while in hospital Continue lifestyle modification Follow-up with family physician for diabetic management Dyslipidemia Triglyceride above 500's Advised pt to resume the tricor (Script sent to the pharmacy) Code status: Full code DVT prophylaxis: Eliquis Disposition: Discharge home today Admission and Anticipated Discharge Date Admission Date: October 29, 2019 Subjective Pt was seen and examined Sitting in chair with no distress Pt said that he feels fine Denies any chest pain, palpitation, dizziness and SOB Physical Exam Physical Exam: General- No acute distress Head- atraumatic Eyes- PERRL, EOMI, ENT- oropharynx clear Neck- supple, no JVD Lungs- clear to auscultation Heart- irregular rhythm; no murmur Abdomen- normal bowel sounds, soft, nontender Extremities- no calf tenderness Neuro- alert, oriented, PERRL, EOMI; no facial palsy; no dysarthria Skin- warm & dry Results & Data ([facility]) Vital Signs (Past 12 Hours) Vital Signs Temp Pulse Pulse Resp BP Pulse Ox 10/30/19 15:35 36.7 C 100 H 16 132/92 94 10/30/19 11:21 36.6 C 71 18 130/83 93 10/30/19 08:00 82 10/30/19 07:30 36.5 C 75 18 105/73 95 10/30/19 04:33 36.5 C 92 H 18 146/102 H 95 (1) Hypertension Hypertension type: unspecified Qualified Code(s): I10 - Essential (primary) hypertension
[2019-10-30] MEDS ORDERED: WARFARIN SOD 5 MG TAB PO SCH (16:00)
--- NOTE | 2019-10-30 16:32 | Electrocardiogram Report ---
Test Reason : Blood Pressure : / mmHG Vent. Rate : 081 BPM Atrial Rate : 000 BPM P-R Int : 000 ms QRS Dur : 078 ms QT Int : 380 ms P-R-T Axes : 000 059 040 degrees QTc Int : 441 ms Atrial fibrillation Low voltage QRS Abnormal ECG When compared with ECG of 29-OCT-2019 00:12, No significant change was found Confirmed by Albino Wu ([id number]) on 10/30/2019 4:32:42 PM Referred By: REFERRED SELF Confirmed By:Albino Wu
--- NOTE | 2019-11-01 09:12 | Discharge Summary ---
Date of Service October 30, 2019 Admission HPI Per Admitting Provider CHIEF COMPLAINT: Chest pain. HISTORY OF PRESENT ILLNESS: This is a 54-year-old male with no significant past medical history, not on any medications, presents with 1 week of left-sided chest pain, sharp stabbing like pain. It comes and goes on its own. No associating factors, but today it stayed all day long, that is the reason he came to the ER. Last couple of days he woke up with palpitations and some nausea, but no vomiting. Denies any headache, no dizziness, no earache, no runny nose, no blurred vision, no sore throat, no cough and patient at one time also had pressure-like feeling on his left arm. Currently, resting comfortably and hemodynamically stable. Denies any abdominal pain, no diarrhea, no constipation, no blood in stool or black stools, no hematuria. Denies any swelling in the legs. Denies any orthopnea,. But since several months he is having some shortness of breath on exertion and feeling weak and tired with exertion. Admission Exam Per Admitting Provider GENERAL: The patient is morbidly obese, not in acute distress. VITAL SIGNS: Temperature 36.6, pulse when he came in was 130s, currently in the 80s, respiratory rate 18, blood pressure 138/71, oxygen 98% on room air. HEENT: No pallor, no icterus. Pupils equal, round, reactive to light. NECK: No JVD, no neck masses, no carotid bruits. CARDIOVASCULAR: S1, S2 heard, irregular rhythm, no murmur, no gallop. RESPIRATORY SYSTEM: Normal AP diameter. No accessory muscle use. No wheezing, no crackles. ABDOMEN: Soft, bowel sounds present, nontender. No distention. CENTRAL NERVOUS SYSTEM: Cranial nerves II-XII grossly nonfocal. EXTREMITIES: Mild pedal edema present, no erythema seen. Principal Diagnosis Atrial fibrillation Hypertension Type 2 diabetes Dyslipidemia Discharge Exam General- No acute distress Head- atraumatic Eyes- PERRL, EOMI, ENT- oropharynx clear Neck- supple, no JVD Lungs- clear to auscultation Heart- irregular rhythm; no murmur Abdomen- normal bowel sounds, soft, nontender Extremities- no calf tenderness Neuro- alert, oriented, PERRL, EOMI; no facial palsy; no dysarthria Skin- warm & dry Discharge Data Allergies Allergy/AdvReac Type Severity Reaction Status Date / Time No Known Allergies Allergy Unverified 10/29/19 01:04 Consultations 10/29/19 01:20 ED Decision to Admit Stat 10/29/19 03:43 Consult Case Management - Discharge Planning Routine 10/29/19 08:00 Consult Cardiology Routine 10/29/19 10:23 Consult Health Information Management Routine Ordered Studies XR chest 1V portable CLINICAL HISTORY: Atypical chest pain COMPARISON STUDY: No previous studies for comparison. FINDINGS: The heart is enlarged. There is mild central vascular prominence which may be accentuated due to the patient's large body habitus. There is no focal pulmonary consolidation. There are no pleural effusions.[ IMPRESSION: Cardiomegaly. No evidence of focal pulmonary consolidation. Mild vascular prominence, a finding which may be accentuated due to the patient's body habitus ACT 112: Negative or not required by law. Electronically signed by: Bo Horvath M.D. 10/29/2019 6:28 AM Dictated: 10/29/19625 Transcribed: 10/29/19625 Hospital Course (1) Atrial fibrillation with RVR: Patient admitted with chest pain shortness of breath, dizzy spell and lightheadedness Found to be in rapid A. fib RVR on admission Received IV lopressor in the ER Starting on Lopressor 25 mg BID, Rate control Calculated [id number] 2 (hypertension/type 2 diabetes) cardiology on board Coumadin was changed to Eliquis Remains in A. fib with rate controlled Plan for Cardioversion after 4 weeks of appropriate anticoagulation Consider outpatient stress test in the future as well given risk factors Echo with normal LV systolic function. 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 Insulin sliding scale while in hospital Continue lifestyle modification Follow-up with family physician for diabetic management Dyslipidemia Triglyceride above 500's Advised pt to resume the tricor (Script sent to the pharmacy) Code status: Full code DVT prophylaxis: Eliquis Disposition: Discharge home today Total Time Total Time Spent Total Time Spent (In Minutes): 35 minutes Total Time Includes: Examination of the Patient, Discharge Planning, Medication Reconciliation, Communication With Other Providers and Other Discharge Plan Discharge Items Patient Disposition: Home - Self-Care Reason For Visit: CHEST PAIN Discharge Diagnosis: Atrial fibrillation Hypertension Type 2 diabetes Dyslipidemia Activity: Resume your previous activity Non-emergency contact: Primary Care Provider and Can Coverer Call non-emergency contact if: you have any medication questions Follow-up/Referrals: Pedrito Mccarthy DO [Outside Practitioners] - 11/05/19 2:40 pm (11/05/2019 2:40 PM with Pedrito Mccarthy DO [facility] ) Diet: Heart Healthy Addtl Attending Provider Instructions: Follow up with your new primary care provider Dr. Mccarthy on 11/04 @ 2:40 PM Follow up with [facility] cardiology group in 2 to 4 weeks ( office will call you for the appointment) Fall precaution while on anticoagulant Follow up a healthy Diabetes diet and limited concentrated sweet intake Resume your tricor Medication Instructions: Eliquis Your condition is typically treated with an anticoagulant. Anticoagulants will thin your blood to help prevent clots and stroke. You should take her medication exactly as directed. Never skip a dose. Never take a double dose. If you miss a dose, take it as soon as you remember. Avoid NSAIDs (Motrin, Aleve, Naproxen, Ibuprofen, Advil, Meloxicam,..) due to risks of bleeding Call your Primary Care doctor if you experience any of the following: Swelling or Pain in your leg Sudden, continuous pain deep in a muscle Pain that worsens when you are active or when you stand still for a long time Chest Pain Sudden Shortness of Breath Rapid or pounding heart beat Fainting Dizziness Cough with blood or bloody sputum Sweating more than normal Bruises Heavy or uncontrolled bleeding Blood in your urine, stool or vomit Black or tarry stools Follow Up: It is important for you to keep your follow up appointments with your medical provider. Pending Studies at Discharge: No Stand-Alone Forms: [employer], Smoking Cessation Medications and DC Order Prescriptions: New metoprolol tartrate 25 mg Tablet 25 mg PO BID 30 Days Qty: 60 RF: 0 Eliquis 5 mg Tablet 5 mg PO BID 30 Days Qty: 60 RF: 0 fenofibrate nanocrystallized [Tricor] 48 mg tablet 48 mg PO DAILY Qty: 30 RF: 0 Discharge Orders: Discharge Order (Routine); Ordered 10/30/19 Ordered By: Maite Streeter/Other Patient Handouts: Diabetes Bereavement Program Coordinator Complications, Diabetes Healthy Meals, Diabetes Exercise Benefits, A1C Admission Data Admit Date/Time: 10/29/19 02:14 Attending Provider: Maite Valente Admit Provider: Cesar Gale Primary Care Provider: Calvin Aguirre Other Providers: Cesar Gale ; Clement Austin ; Aaron Gregory ; Obi Landis ; Benjamin Rodríguez ; Antony Victor ; Ovidio Arroyo ; Alicia Moise ; Yolanda Harris ; Ivan Bhagat ; Paulina Ortega. Other Interventions: Discharge Summary Assessment (RN) Last Done: 10/30/19 16:54 DC Date/Time DO NOT enter until pt leaves facility: 10/30/19 17:27
== END 2019-10-30 17:27 | disposition home or self-care (01) | DRG 309 ==
LOC: ED 00:03 → 2S 02:14 → SUATTDRO 02:14 → 2S 03:31

== ENCOUNTER 2020-01-07 06:17 | Inpatient (IN) ==
--- NOTE | 2020-01-02 13:08 | Anesthesiology Consultation ---
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) Chart Review Chart Review: Acceptable Risk for Surgery and Patient NOT seen in Pre Admission Testing History Surgery Operation Date: 01/07/20 07:30 Proposed Procedures p Cardioversion Costume Design Teacher w/Anesthesia - Antony Victor DO Height/Weight Height: 5 ft 7 in Weight: 122.47 kg Allergies Allergy/AdvReac Type Severity Reaction Status Date / Time shellfish derived Allergy Intermediate very sick Verified 01/02/20 12:09 Medications Home Medications Medication Instructions Recorded Confirmed Last Taken apixaban [Eliquis] 5 mg PO BID 01/02/20 01/02/20 Unknown fenofibrate nanocrystallized 145 mg PO QAM 01/02/20 01/02/20 Unknown [Tricor] metoprolol tartrate 25 mg PO BID 01/02/20 01/02/20 Unknown Past Medical History Medical History (Updated 01/02/20 @ 13:12 by Claudia Richard) Atrial fibrillation found to be in A-fib 10/30/2019---reason for scheduled cardioversion Hyperlipidemia Morbid obesity with BMI of 40.0-44.9, adult Past Family History Family History (Updated 01/02/20 @ 12:19 by Uma Quiroga, BIANCA) Father Family history of diabetes mellitus Other Myocardial infarction No family history of adverse response to anesthesia Past Surgical History Surgical History (Updated 01/02/20 @ 12:19 by Uma Quiroga, BIANCA) History of colonoscopy with polypectomy History of esophagogastroduodenoscopy (EGD) History of nasal polypectomy History of repair of anterior cruciate ligament of right knee History of shoulder surgery left x4---hardware in place History of surgical removal of ganglion cyst removed off right elbow History of wisdom tooth extraction Hx of vasectomy Social History Smoking Status: Never smoker Do You Dip or Chew Tobacco: No Hx Alcohol Use: No Hx Substance Use: No substance use type: does not use Testing Laboratory Results 12/31/19 WBC 5.12 H/H 16.4/48.0 PLT 297 NA 140 K 4.6 CL 108H CO2 20L BUN 18 CREATININE 1.1 GLUCOSE 119 HGBA1C 6.0% Electrocardiogram Date: 12/30/19 A. fib at 66bpm. Low voltage QRS. Chest X-Ray Date: 10/29/19 Cardiomegaly. No evidence of focal pulmonary consolidation. Mild vascular prominence, a finding which may be accentuated due to the patient's body habitus Echocardiogram Date: 10/29/19 EF 50-55%. No RWMA. Mild LAD/RAD. Mild MR. Stress Test Date: 11/20/19 Type: nuclear Normal exercise/pharmacologic nuclear stress test with no evidence of resting or inducible ischemia. Rate controlled a. fib at baseline and throughout study. Gated SPECT images with normal myocardial thickening and wall motion. LVEF 53%. 92% MPHR.
[~2020-01-07 06:17] MED LIST: HydrALAZINE HCL 20 MG/ML VIAL ONE
[2020-01-07] MEDS ORDERED: PROPOFOL IV EMULSION 10 MG/ML 20 ML VIAL IV ONE (07:16)
[2020-01-07] MEDS ORDERED: ATROPINE SULFATE 0.1 MG/ML 10ML SYR IV ONE (07:31)
--- NOTE | 2020-01-07 07:37 | History & Physical Bridge Note ---
Date of Service January 07, 2020 History & Physical Bridge Note I have examined the patient, reviewed the History & Physical and in the interval since the performance of the History & Physical I have noted the following changes of clinical significance: no changes noted
--- NOTE | 2020-01-07 07:47 | Anesthesiology Progress Note ---
Date of Service January 07, 2020 Anesthesia Post Procedure Vital Signs Vital Signs: Temp Pulse Resp BP Pulse Ox 01/07/20 06:51 37.1 C 77 18 127/97 96 Transfer of Care Handoff Completed per policy Notes Mental Status: alert / awake / arousable and participated in evaluation Patient Amnestic to Procedure: Yes Nausea / Vomiting: adequately controlled Pain: adequately controlled Airway Patency, RR, SpO2: stable & adequate BP & HR: stable & adequate Hydration State: stable & adequate Anesthetic Complications: no major complications apparent and Pt Satisfied with anesthetic care
--- NOTE | 2020-01-07 07:49 | Cardioversion ---
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 He received sedation by anesthesia and then received cardioversion at first at 200 J and then repeated at 300 J. The patient went into sinus rhythm for a few minutes and then reverted back to atrial fibrillation with controlled ventricular response. At this point, in a shared decision making process, the patient will be admitted for a sotalol load and potential repeat cardioversion.
[2020-01-07] MEDS ORDERED: ZOLPIDEM TARTRATE 5 MG TAB PO PRN (08:07)
[2020-01-07] MEDS ORDERED: ALUMINUM/MAGNESIUM SUSP 30 ML UDC PO PRN (08:07)
[2020-01-07] MEDS ORDERED: MAGNESIUM HYDROXIDE SUSP 30 ML UDC PO PRN (08:07)
[2020-01-07] MEDS ORDERED: ONDANSETRON INJ 2 MG/ML 2 ML VIAL IV PRN (08:07)
[2020-01-07] MEDS ORDERED: POLYETHYLENE (MIRALAX) 17 GM PACK PO PRN (08:07)
[2020-01-07] MEDS ORDERED: ACETAMINOPHEN 325 MG TAB PO PRN (08:07)
[2020-01-07] MEDS: SOTALOL HCL 80 MG TAB PO SCH ×2 (09:35→20:09)
--- NOTE | 2020-01-07 15:53 | Electrocardiogram Report ---
Test Reason : Blood Pressure : / mmHG Vent. Rate : 065 BPM Atrial Rate : 083 BPM P-R Int : 000 ms QRS Dur : 080 ms QT Int : 390 ms P-R-T Axes : 000 054 052 degrees QTc Int : 405 ms Atrial fibrillation Low voltage QRS Abnormal ECG When compared with ECG of 30-OCT-2019 06:32, No significant change was found Confirmed by Nas Osborne ([id number]) on 01/07/2020 3:52:29 PM Referred By: Alicia Moise Confirmed By:Evgeny Osborne
[2020-01-07] MEDS: APIXABAN 5 MG TABLET PO SCH (20:09)
[2020-01-08] MEDS: SOTALOL HCL 80 MG TAB PO SCH ×2 (08:12→21:22)
[2020-01-08] MEDS: APIXABAN 5 MG TABLET PO SCH ×2 (08:13→21:21)
[2020-01-08] MEDS: FENOFIBRATE NANOCRYSTALLIZED 145 MG TABLET PO SCH (08:13)
--- NOTE | 2020-01-08 10:00 | Cardiology Progress Note ---
Date of Service January 08, 2020 Assessment & Plan (1) Atrial fibrillation: (2) Encounter for monitoring anti-arrhythmic therapy: The patient is tolerating sotalol. His EKG this morning indicates no significant lengthening of the QT interval. The plan will be to continue the sotalol through 6 doses and then try a repeat cardioversion. It looks like that will likely be Monday morning. Subjective The patient had an uneventful night. Review of Systems Review of Systems: All systems reviewed & are unremarkable except as noted in HPI & below Nothing additional to add Physical Exam Physical Exam: General: no acute distress and stated age Head: normocephalic, no masses, lesions, tenderness or abnormalities Eyes: conjunctiva are pink and non-injected, sclera clear Neck: supple, no adenopathy, no bruits, normal jugular venous pulse, no hepatojugular reflux Chest: normal shape and normal respiratory effort Lungs: clear to auscultation and percussion Cardiac Exam: - regular rate & rhythm, no murmurs gallops or rubs - normal S1, normal S2 Pulses: 2(+) throughout Abdomen: abdomen soft, non-tender, no abnormal masses and no hepatosplenomegaly Musculoskeletal: no gait disturbance, no joint inflammation, no deforming arthritis Extremities: no edema and no cyanosis Neuro: grossly normal exam Results & Data Vital Signs (Past 12 Hours) Vital Signs Temp Pulse Pulse Resp BP Pulse Ox 01/08/20 08:00 72 20 01/08/20 07:54 36.8 C 75 16 120/85 95 01/08/20 04:49 36.6 C 70 18 125/79 96 01/08/20 00:00 63 01/07/20 23:30 36.6 C 75 18 109/78 95 Laboratory Results Laboratory Results - last 24 hr 01/07/20 09:45 Nasal Screen MRSA (PCR) Negative Medications Administered Current Inpatient Medications Acetaminophen (Tylenol) 650 mg PO Q4H PRN PRN Reason: Pain or Fever Stop: 02/06/20 08:06 Al Hydrox/Mg Hydrox/Simethicone (Maalox) 15 ml PO Q4H PRN PRN Reason: Dyspepsia Stop: 02/06/20 08:06 Apixaban (Eliquis) 5 mg PO BID DEMETRI Stop: 02/06/20 20:59 Last Admin: 01/08/20 08:13 Dose: 5 mg Documented by: Fenofibrate (Tricor) 145 mg PO QAM [facility] Stop: 02/07/20 08:59 Last Admin: 01/08/20 08:13 Dose: 145 mg Documented by: Magnesium Hydroxide (Milk Of Magnesia) 30 ml PO Q12H PRN PRN Reason: Constipation Stop: 02/06/20 08:06 Polyethylene Glycol (Miralax Powder Packet) 17 gm PO DAILY PRN PRN Reason: Constipation Stop: 02/06/20 08:06 Sotalol HCl (Betapace) 80 mg PO BID [facility] Stop: 02/06/20 08:59 Last Admin: 01/08/20 08:12 Dose: 80 mg Documented by: Zolpidem Tartrate (Ambien) 5 mg PO HS PRN PRN Reason: Sleep Stop: 02/06/20 08:06
--- NOTE | 2020-01-08 16:16 | Electrocardiogram Report ---
Test Reason : Blood Pressure : / mmHG Vent. Rate : 071 BPM Atrial Rate : 000 BPM P-R Int : 000 ms QRS Dur : 080 ms QT Int : 406 ms P-R-T Axes : 000 066 067 degrees QTc Int : 441 ms Atrial fibrillation Low voltage QRS Abnormal ECG When compared with ECG of 07-JAN-2020 07:49, No significant change was found Confirmed by Nas Osborne ([id number]) on 01/08/2020 4:16:17 PM Referred By: Alicia Moise Confirmed By:Evgeny Osborne
[2020-01-09] MEDS: FENOFIBRATE NANOCRYSTALLIZED 145 MG TABLET PO SCH (09:12)
[2020-01-09] MEDS: SOTALOL HCL 80 MG TAB PO SCH ×2 (09:12→20:38)
[2020-01-09] MEDS: APIXABAN 5 MG TABLET PO SCH ×2 (09:13→21:22)
--- NOTE | 2020-01-09 09:41 | Cardiology Progress Note ---
Date of Service January 09, 2020 Assessment & Plan (1) Atrial fibrillation: (2) Encounter for monitoring anti-arrhythmic therapy: The patient's QT interval is stable. The plan will be to repeat his cardioversion tomorrow. The patient understands the risk, benefit and intent of the cardioversion and is willing to proceed. Subjective No complaints. Uneventful night. Tolerating the sotalol. Review of Systems Review of Systems: All systems reviewed & are unremarkable except as noted in HPI & below Nothing additional to add Physical Exam Physical Exam: General: no acute distress and stated age Head: normocephalic, no masses, lesions, tenderness or abnormalities Eyes: conjunctiva are pink and non-injected, sclera clear Neck: supple, no adenopathy, no bruits, normal jugular venous pulse, no hepatojugular reflux Chest: normal shape and normal respiratory effort Lungs: clear to auscultation and percussion Cardiac Exam: -Irregular rate & rhythm, no murmurs gallops or rubs - normal S1, normal S2 Pulses: 2(+) throughout Abdomen: abdomen soft, non-tender, no abnormal masses and no hepatosplenomegaly Musculoskeletal: no gait disturbance, no joint inflammation, no deforming arthritis Extremities: no edema and no cyanosis Neuro: grossly normal exam Results & Data Vital Signs (Past 12 Hours) Vital Signs Temp Pulse Resp BP Pulse Ox 01/09/20 04:21 36.6 C 92 H 16 137/78 95 01/08/20 23:51 36.8 C 75 22 109/83 95 Medications Administered Current Inpatient Medications Acetaminophen (Tylenol) 650 mg PO Q4H PRN PRN Reason: Pain or Fever Stop: 02/06/20 08:06 Al Hydrox/Mg Hydrox/Simethicone (Maalox) 15 ml PO Q4H PRN PRN Reason: Dyspepsia Stop: 02/06/20 08:06 Apixaban (Eliquis) 5 mg PO BID [facility] Stop: 02/06/20 20:59 Last Admin: 01/09/20 09:13 Dose: 5 mg Documented by: Fenofibrate (Tricor) 145 mg PO QAM [facility] Stop: 02/07/20 08:59 Last Admin: 01/09/20 09:12 Dose: 145 mg Documented by: Magnesium Hydroxide (Milk Of Magnesia) 30 ml PO Q12H PRN PRN Reason: Constipation Stop: 02/06/20 08:06 Polyethylene Glycol (Miralax Powder Packet) 17 gm PO DAILY PRN PRN Reason: Constipation Stop: 02/06/20 08:06 Sotalol HCl (Betapace) 80 mg PO BID DEMETRI Stop: 02/06/20 08:59 Last Admin: 01/09/20 09:12 Dose: 80 mg Documented by: Zolpidem Tartrate (Ambien) 5 mg PO HS PRN PRN Reason: Sleep Stop: 02/06/20 08:06
--- NOTE | 2020-01-09 10:07 | Anesthesiology Consultation ---
Date of Service January 09, 2020 Assessment & Plan Chart Review Chart Review: Acceptable Risk for Surgery and Patient NOT seen in Pre Admission Testing History Surgery Operation Date: 01/07/20 07:30 Proposed Procedures p Cardioversion Manager Therapy w/Anesthesia - Antony Victor DO Operation Date: 01/10/20 07:45 Proposed Procedures p Cardioversion Manager Therapy w/Anesthesia - Antony Victor DO Height/Weight Height: 5 ft 7 in Weight: 123.6 kg Allergies Allergy/AdvReac Type Severity Reaction Status Date / Time shellfish derived Allergy Intermediate very sick Verified 01/07/20 06:48 Medications Home Medications Medication Instructions Recorded Confirmed Last Taken apixaban [Eliquis] 5 mg PO BID 01/02/20 01/07/20 01/07/20 05:45 fenofibrate nanocrystallized 145 mg PO QAM 01/02/20 01/07/20 01/07/20 05:45 [Tricor] metoprolol tartrate 25 mg PO BID 01/02/20 01/07/20 01/07/20 05:45 Active Medications Generic Name Dose Route Start Last Admin Trade Name Freq PRN Reason Stop Dose Admin Apixaban 5 mg 01/07/20 21:00 01/09/20 09:13 Eliquis PO 02/06/20 20:59 5 mg BID DEMETRI Administration Fenofibrate 145 mg 01/08/20 09:00 01/09/20 09:12 Tricor PO 02/07/20 08:59 145 mg QAM DEMETRI Administration Sotalol HCl 80 mg 01/07/20 09:00 01/09/20 09:12 Betapace PO 02/06/20 08:59 80 mg BID DEMETRI Administration NPO Date Last Intake of Fluids: 01/06/20 Time Last Intake of Fluids: 20:00 Date Last Intake of Solids: 01/06/20 Time Last Intake of Solids: 20:00 Past Medical History Medical History Atrial fibrillation found to be in A-fib 10/30/2019---reason for scheduled cardioversion Hyperlipidemia Morbid obesity with BMI of 40.0-44.9, adult Past Family History Family History Father Family history of diabetes mellitus Other Myocardial infarction No family history of adverse response to anesthesia Past Surgical History Surgical History History of colonoscopy with polypectomy History of esophagogastroduodenoscopy (EGD) History of nasal polypectomy History of repair of anterior cruciate ligament of right knee History of shoulder surgery left x4---hardware in place History of surgical removal of ganglion cyst removed off right elbow History of wisdom tooth extraction Hx of vasectomy Social History Smoking Status: Never smoker Do You Dip or Chew Tobacco: No Hx Alcohol Use: No Hx Substance Use: No substance use type: does not use Physical Exam Vital Signs Last Vital Signs Temp 36.6 C 01/09/20 04:21 Pulse 92 H 01/09/20 04:21 Resp 16 01/09/20 04:21 BP 137/78 01/09/20 04:21 Pulse Ox 95 01/09/20 04:21
--- NOTE | 2020-01-09 16:09 | Electrocardiogram Report ---
Test Reason : Blood Pressure : / mmHG Vent. Rate : 075 BPM Atrial Rate : 000 BPM P-R Int : 000 ms QRS Dur : 076 ms QT Int : 402 ms P-R-T Axes : 000 058 072 degrees QTc Int : 448 ms Atrial fibrillation Nonspecific ST abnormality Abnormal ECG When compared with ECG of 08-JAN-2020 07:31, No significant change was found Confirmed by Nas Osborne ([id number]) on 01/09/2020 4:09:34 PM Referred By: Alicia Moise Confirmed By:Evgeny Osborne
[2020-01-10] MEDS: SOTALOL HCL 80 MG TAB PO SCH (06:33)
[2020-01-10] MEDS ORDERED: PROPOFOL IV EMULSION 10 MG/ML 20 ML VIAL IV ONE (07:07)
[2020-01-10] MEDS ORDERED: ATROPINE SULFATE 0.1 MG/ML 10ML SYR IV ONE (07:32)
--- NOTE | 2020-01-10 08:14 | Anesthesiology Progress Note ---
Date of Service January 10, 2020 Anesthesia Post Procedure Vital Signs Vital Signs: Temp Pulse Pulse Pulse Resp BP BP 01/10/20 07:04 36.7 C 79 18 135/98 01/10/20 03:49 36.4 C L 81 18 138/86 01/10/20 00:15 36.6 C 60 18 111/68 01/09/20 19:28 36.9 C 77 18 127/77 01/09/20 15:11 36.4 C L 77 20 143/91 H 01/09/20 11:48 36.6 C 83 20 123/62 Pulse Ox 01/10/20 07:04 96 01/10/20 03:49 94 01/10/20 00:15 93 01/09/20 19:28 94 01/09/20 15:11 95 01/09/20 11:48 95 Transfer of Care Handoff Completed per policy Notes Mental Status: alert / awake / arousable and participated in evaluation Patient Amnestic to Procedure: Yes Nausea / Vomiting: adequately controlled Pain: adequately controlled Airway Patency, RR, SpO2: stable & adequate BP & HR: stable & adequate Hydration State: stable & adequate Anesthetic Complications: no major complications apparent and Pt Satisfied with anesthetic care
[2020-01-10] MEDS ORDERED: Nursing to Pharmacy Communication ONE (09:15)
[2020-01-10] MEDS ORDERED: SILVER SULFADIAZINE 1% CR 50 GM JAR EXT PRN (09:23)
[2020-01-10] MEDS: APIXABAN 5 MG TABLET PO SCH (09:30)
[2020-01-10] MEDS: FENOFIBRATE NANOCRYSTALLIZED 145 MG TABLET PO SCH (09:30)
--- NOTE | 2020-01-10 09:36 | Discharge Summary ---
Date of Service January 10, 2020 Principal Diagnosis Persistent atrial fibrillation. Patient admitted for start of sotalol and repeat cardioversion. Discharge Exam General: no acute distress and stated age Head: normocephalic, no masses, lesions, tenderness or abnormalities Eyes: conjunctiva are pink and non-injected, sclera clear Neck: supple, no adenopathy, no bruits, normal jugular venous pulse, no hepatojugular reflux Chest: normal shape and normal respiratory effort Lungs: clear to auscultation and percussion Cardiac Exam: - regular rate & rhythm, no murmurs gallops or rubs - normal S1, normal S2 Pulses: 2(+) throughout Abdomen: abdomen soft, non-tender, no abnormal masses and no hepatosplenomegaly Musculoskeletal: no gait disturbance, no joint inflammation, no deforming arthritis Extremities: no edema and no cyanosis Neuro: grossly normal exam Discharge Data Allergies Allergy/AdvReac Type Severity Reaction Status Date / Time shellfish derived Allergy Intermediate very sick Verified 01/07/20 06:48 Consultations 01/09/20 09:37 Consult Anesthesiology Routine Procedures Performed Operation Date: 01/07/20 07:30 Actual Procedures p Cardioversion - Antony Victor DO Operation Date: 01/10/20 07:45 Actual Procedures p Cardioversion - Antony Victor DO Hospital Course (1) Atrial fibrillation: (2) Encounter for monitoring anti-arrhythmic therapy: Patient had a failed outpatient cardioversion and then was admitted for observation and the start of sotalol. After several days of sotalol his QT interval was stable and was tolerating the medication. He was taken back down to the holding area the [facility] [employer] [facility] where a second cardioversion was performed. This cardioversion was successful in maintaining sinus rhythm. Total Time Total Time Spent Total Time Spent (In Minutes): I spent approximately 20 minutes with this discharge. Total Time Includes: Examination of the Patient, Discharge Planning, Medication Reconciliation and Communication With Other Providers Discharge Plan Discharge Items Reason For Visit: Atrial Fibrillation Medications and DC Order Prescriptions: No Action metoprolol tartrate 25 mg Tablet 25 mg PO BID RF: 0 fenofibrate nanocrystallized [Tricor] 145 mg Tablet 145 mg PO QAM RF: 0 Eliquis 5 mg Tablet 5 mg PO BID RF: 0 Admission Data Admit Date/Time: 01/07/20 09:00 Attending Provider: Antony Victor Admit Provider: Antony Victor Primary Care Provider: Pedrito Mccarthy Other Providers: Francisco Almaraz
--- NOTE | 2020-01-10 09:37 | Cardioversion ---
Date of Service January 10, 2020 Electrical Cardioversion Rpt Electrical Cardioversion Report After informed consent was obtained, the patient was given sedation by anesthesia. He then received 2 consecutive cardioversions starting at 300 J without success and then a fourth cardioversion was performed with 360 J of synchronized energy. Patient converted back to sinus rhythm and was able to maintain this rhythm. He was recovered and returned to his room in stable condition.
[2020-01-10 12:28] VITALS: BP 130/79; PULSE 62; TEMP 99; O2SAT 92
--- NOTE | 2020-01-10 19:47 | Electrocardiogram Report ---
Test Reason : Blood Pressure : / mmHG Vent. Rate : 060 BPM Atrial Rate : 060 BPM P-R Int : 188 ms QRS Dur : 080 ms QT Int : 418 ms P-R-T Axes : 025 054 078 degrees QTc Int : 418 ms Normal sinus rhythm Normal ECG When compared with ECG of 09-JAN-2020 07:10, Sinus rhythm has replaced Atrial fibrillation Confirmed by Nas Osborne ([id number]) on 01/10/2020 7:47:10 PM Referred By: Alicia Moise Confirmed By:Evgeny Osborne
== END 2020-01-10 13:37 | disposition home or self-care (01) | DRG 310 ==
LOC: CC 06:17 → 1E 09:00 → 2S 01-09 11:14